=== PATIENT | female | born 1950 | race Caucasian/White ===

== ENCOUNTER 2025-03-04 11:15 | Emergency (ER) | payer OTHER ==
[~2025-03-04] VITALS: Ht 165.1 cm; Wt 56.9 kg
[2025-03-04 11:16] VITALS: BP 123/50; PULSE 58; RESP 16
--- NOTE | 2025-03-04 12:41 | EKG ---
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
--- NOTE | 2025-03-04 13:00 | HMCIMG ---
EXAM: CT Head Without IV contrast. CLINICAL HISTORY: syncope TECHNIQUE: Axial computed tomography images of the head/brain without intravenous contrast. COMPARISON: None provided. FINDINGS: BRAIN: No evidence of acute hemorrhage. No mass lesion. No CT evidence for acute territorial infarct. No midline shift or extra-axial collections. VENTRICLES: No hydrocephalus. ORBITS: The orbits are unremarkable. SINUSES AND MASTOIDS: The paranasal sinuses and mastoid air cells are clear. BONES: No fracture. SOFT TISSUES: Unremarkable. IMPRESSION: No acute intracranial abnormality. /[place]
[2025-03-04 13:04] LABS: IMMATURE GRANULOCYTE ABSOLUTE 0.04 K/uL (0-1); NUCLEATED RED BLOOD CELLS 0.0 % (0.0-0.19); PLATELET COUNT (AUTO) 230 K/uL (130-400); RED BLOOD CELL COUNT(AUTO) 4.33 MIL/uL (4.00-5.50); RED CELL DISTRIBUTION WIDTH 16.4 % (11.0-15.5); WHITE BLOOD COUNT (AUTO) 9.2 K/uL (4.8-10.8)
[2025-03-04 13:12] LABS: CREATININE 1.1 mg/dL (0.5-1.0); GLOMERULAR FILTR. RATE CALC 52.0 mL/min (>90); GLUCOSE,RANDOM 90.0 mg/dL (70-105); SODIUM SERUM 141.0 mmol/L (136-145); UREA NITROGEN, BLOOD 14.0 mg/dL (7-18)
[2025-03-04 13:37] LABS: APPEARANCE,URINE CLEAR (CLEAR); GLUCOSE, URINE (UA) NEGATIVE (NEGATIVE); LEUKOCYTE ESTERASE ,URINE 250 Leu/uL (NEGATIVE); NITRATE,URINE NEGATIVE (NEGATIVE); OCCULT BLOOD,URINE SMALL (NEGATIVE)
[2025-03-04 13:56] LABS: ADD UA MICROSCOPIC YES
--- NOTE | 2025-03-04 13:59 | HMCIMG ---
EXAM CR Pelvis, 1 View. CLINICAL HISTORY Injury. COMPARISON None provided. FINDINGS BONES No acute fracture or aggressive appearing osseous lesion is identified in the visualized pelvis or proximal femora. JOINTS There is mild bilateral hip osteoarthritis with minimal joint space narrowing and small marginal osteophytes. No hip dislocation is seen. SOFT TISSUES The soft tissues are unremarkable. IMPRESSION * Mild bilateral hip osteoarthritis. * No acute osseous abnormality. /[place]
--- NOTE | 2025-03-04 14:00 | HMCIMG ---
EXAM CR Right Hand, 3 View. CLINICAL HISTORY Injury. COMPARISON None provided. FINDINGS BONES There is mild diffuse osteopenia involving the distal radius, ulna, carpal bones, metacarpals, and phalanges. Presumed old fracture deformity at the mid diaphysis of the second metacarpal. No acute fracture or aggressive osseous lesion is identified. JOINTS Degenerative changes are present at the proximal and distal interphalangeal joints with marginal osteophytes and mild joint space narrowing. There are mild degenerative changes at the first carpometacarpal and intercarpal joints. No dislocation is seen. SOFT TISSUES The soft tissues appear within normal limits. No radiopaque foreign body is identified. IMPRESSION * Mild osteopenia of the right hand and wrist. * Degenerative changes involving the proximal and distal interphalangeal joints and mild osteoarthritis of the first carpometacarpal and intercarpal joints. * No acute fracture or dislocation. Presumed old, malunited fracture deformity at the mid diaphysis of the second metacarpal. Clinical correlation is advised. /Kenna
--- NOTE | 2025-03-04 14:02 | HMCIMG ---
EXAM: CR right elbow, 2 View. CLINICAL HISTORY: injury COMPARISON: None provided. FINDINGS: BONES: No acute fracture or aggressive appearing osseous lesion. JOINTS: The joint spaces appear within normal limits. No dislocation. No radiographic evidence of a joint effusion. SOFT TISSUES: The soft tissues are unremarkable. IMPRESSION: No acute osseous abnormality. /[place]achin
[2025-03-04 14:03] LABS: SQUAMOUS EPITHELIAL CELL,UR RARE /HPF (0-2)
[2025-03-04] MEDS: HYDROcodone/APAP 5/325 1 TAB TABLET PO ONE (14:48)
[2025-03-04] MEDS ORDERED: CEPH500B PO (14:56)
--- NOTE | 2025-03-04 14:57 | ERN ---
ED Note History of Present Illness Stated Complaint: FALL Chief Complaint: Mechanical Fall Time Seen by MD: 11:21 Dictation: 74-year-old female who presents to the emergency department after fall yesterday afternoon however did not seek care until today patient reports getting out of vehicle and falling onto her right hand and right arm area, patient also reported that she felt somewhat dizzy before the fall. No chest pain no shortness a breath Allergies: Coded Allergies: No Known Drug Allergies (Unverified Allergy, Unknown, 03/04/25) Past Medical History Past Medical History: Hypertension Surgical History: Tonsillectomy, Other Surgical History Other: BACK SX Review of System Dictation Constitutional: Negative for fever,chills, and weight loss Eyes: Negative for injury, pain,redness, and discharge ENT: Negative for injury,pain or swelling Cardiovascular: Negative for chest pain, palpitations, and edema Respiratory: Negative for shortness of breath, cough, and wheezing, Abdomen/GI: Negative for abdominal pain, nausea, vomiting, diarrhea, and constipation Back: Negative for injury and pain : Negative for injury, bleeding and discharge MS/Extremity: Per HPI Skin: Per HPI Neuro: Per HPI Initial Vital Sign VS Vital Signs Date Time Temp Pulse Resp B/P (MAP) Pulse Ox O2 Delivery O2 Flow Rate FiO2 03/04/25 11:16 58 16 123/50 98 0 Physical Exam Dictation General: awake, alert, NAD Head/Face: Normocephalic, atraumatic Eyes: PERRL, EOMI, vision at baseline ENT: oral cavity clear, TMs clear, no signs of infection Neck: Trachea midline, supple, no nuchal rigidity Cardiovascular: RRR, normal S1/S2, No MRGs, no JVD Respiratory: CTAB, no respiratory distress, No rales or wheezes Abdomen: Soft, non-tender, non-distended, normal bowel sounds, no guarding or rebound. Skin: Warm, dry, normal turgor, no rash, laceration to the right 3rd digit, over the PIP joint, flexor extensor tendon intact MS/Extremity: Pulses equal, no cyanosis, neurovascular intact, FROM, contusion to right elbow area, Neuro: COAx4, GCS 15, strength 5/5, CN 2-12 intact, normal cerebellar exam, normal gait, Psych: Normal behavior, mood, and affect normal Results (Laboratory/Radiology) Laboratory/Radiology Laboratory Tests Test 03/04/25 12:57 03/04/25 13:15 White Blood Count 9.2 K/uL (4.8-10.8) Red Blood Count 4.33 MIL/uL (4.00-5.50) Hemoglobin 11.8 g/dL (12.0-16.0) L Hematocrit 38.6 % (36-48) Mean Corpuscular Volume 89.1 fL (79-99) Mean Corpuscular Hemoglobin 27.3 pg (27.0-33.0) Mean Corpuscular Hemoglobin Concent 30.6 g/dL (32.0-36.0) L Red Cell Distribution Width 16.4 % (11.0-15.5) H Platelet Count 230 K/uL (130-400) Mean Platelet Volume 10.5 fL (7.5-10.5) Immature Granulocyte % (Auto) 0.4 % (0-1) Neutrophils (%) (Auto) 64.3 % (40.0-77.0) Lymphocytes (%) (Auto) 26.1 % (21.0-51.0) Monocytes (%) (Auto) 7.7 % (3.0-13.0) Eosinophils (%) (Auto) 1.2 % (0.0-8.0) Basophils (%) (Auto) 0.3 % (0.0-5.0) Neutrophils # (Auto) 5.9 K/uL (1.8-7.7) Lymphocytes # (Auto) 2.4 K/uL (1.0-4.8) Monocytes # (Auto) 0.7 K/uL (0.1-1.0) Eosinophils # (Auto) 0.11 K/uL (0.00-0.70) Basophils # (Auto) 0.03 K/uL (0.00-0.20) Absolute Immature Granulocyte (auto 0.04 K/uL (0-1) Nucleated Red Blood Cells 0.0 % (0.0-0.19) Red Blood Cell Morphology See comments Sodium Level 141 mmol/L (136-145) Potassium Level 3.8 mmol/L (3.5-5.1) Chloride Level 107 mmol/L (101-111) Carbon Dioxide Level 31 mmol/L (21-32) Blood Urea Nitrogen 14 mg/dL (7-18) Creatinine 1.1 mg/dL (0.5-1.0) H Glomerular Filtration Rate Calc 52 mL/min (>90) Random Glucose 90 mg/dL (70-105) Total Calcium 8.7 mg/dL (8.5-10.1) Troponin I High Sensitivity 12 ng/L (4-50) Urine Color YELLOW (YELLOW) Urine Appearance CLEAR (CLEAR) Urine pH 6.0 (5.0-8.0) Urine Specific [place] 1.019 (1.001-1.031) Urine Protein 50 mg/dL (NEGATIVE) H Urine Glucose (UA) NEGATIVE mg/dL (NEGATIVE) Urine Ketones NEGATIVE mg/dL (NEGATIVE) Urine Occult Blood SMALL (NEGATIVE) H Urine Nitrate NEGATIVE (NEGATIVE) Urine Bilirubin NEGATIVE mg/dL (NEGATIVE) Urine Urobilinogen 0.2 mg/dL (0.2-1.0) Urine Leukocyte Esterase 250 Yemi/uL (NEGATIVE) H Urine RBC 6-10 /HPF (0-1) H Urine WBC 11-25 /HPF (0-1) H Urine Squamous Epithelial Cells RARE /HPF (0-2) Urine Bacteria None /HPF (None Seen) Labs Reviewed?: Yes EKG: (+) NSR, (+) rhythm, (+) nonspecific ST T wave chg, (+) unchanged ED Course ED Course Orders Procedure Category Date Status Time Hand 3+Vws Rt RAD 03/04/25 Resulted 12:03 Elbow 2vws Rt RAD 03/04/25 Resulted 12:03 Pelvis 1-2vws RAD 03/04/25 Resulted 12:03 Ct Head/Brain W/O CT 03/04/25 Resulted Contrast 12:03 12 Lead Ekg Tracing- EKG 03/04/25 Complete Technical 12:03 Basic Metabolic Panel LAB 03/04/25 Complete 12:03 Cbc With Differential LAB 03/04/25 Complete 12:03 Troponin I High LAB 03/04/25 Complete Sensitivity 12:03 Urinalysis Profile LAB 03/04/25 Complete 12:03 Culture Urine OLGA 03/04/25 In Process 13:56 Ketorolac PHA 03/04/25 Complete Tromethamine 15mg/Ml 14:30 Hydrocodone/Apap PHA 03/04/25 Complete 5/325 ([place] 5/325mg) 14:30 Wound Care (Er) CPOE 12/21/25 Transmitted 14:28 Finger Splint TARIQ 12/21/25 In Process 14:28 Current Medications Medications (Trade) Dose Ordered Sig/Johanne Route PRN Reason Start Time Stop Time Status Last Admin Dose Admin Acetaminophen/ Hydrocodone Bitart (NORco 5/325MG) 1 tab ONCE ONCE PO 03/04/25 14:30 03/04/25 14:31 DC 03/04/25 14:48 Ketorolac Tromethamine (toRADol) 15 mg ONCE ONCE IM 03/04/25 14:30 03/04/25 14:31 DC 03/04/25 14:48 Vital Signs Date Time Temp Pulse Resp B/P (MAP) Pulse Ox O2 Delivery O2 Flow Rate FiO2 03/04/25 11:16 58 16 123/50 98 0 Medical Decision Making MDM MDM: Differential diagnosis: Rationale: Tests considered and ordered secondary to shared decision making include: Previous outside records reviewed: Old ER visits. Risk of complication and/or morbidity or mortality of patient management: None Medications-Per medication reconciliation Need for hospitalization: Patient does not meet criteria for hospitalization. Need for emergency major/minor surgery: No There are no social concerns with this patient. Prescription drug management Prescriptions will include symptomatic care Patient's prior external medical records from other ER visits were reviewed by me as indicated. Prior testing and results from previous visits were reviewed. Prior tests were taken into account with medical decision making and resource utilization, independent historian/historians were used to obtain complete medical history. I independently interpreted the test that were performed, results were reviewed by me and considered findings on radiology if ordered. Medical management and examination interpretation discussions were had by me with other qualified healthcare professionals as indicated for the patient's care. 74-year-old female with fall x-rays and CT of the head were negative negative cardiac workup, small laceration to the 3rd digit on the right hand was too old for laceration repair, laceration was irrigated washed out with Betadine placed on antibiotics tetanus is up-to-date, and loosely approximated with Steri-Strips and a finger splint. Procedure Wound Location: upper extremity Wound's Depth, Shape: superficial Wound Explored: clean Wound Debrided: extensive Wound Repaired With: Steri-strips Sterile Dressing Applied?: Yes DX & DISP Disposition: Discharge Departure Impression: Primary Impression: Fall Additional Impressions: Laceration of right hand, Contusion of right elbow Condition: Stable Scripts Cephalexin Monohydrate (Keflex) 500 Mg Cap 500 MG PO BID for 7 Days, #14 CAP Prov: BETH CARRENO MD 03/04/25 Referrals: SELF,REFERRAL (PCP) BETH CARRENO MD Mar 04, 2025 14:56
--- NOTE | 2025-03-04 15:45 | NUR ---
WOUND CARE COMPLETE. APPLIED FINGER SPLINT TO RT INDEX FINGER, PT TOLERATED WELL.
== END 2025-03-04 15:57 | disposition home or self-care (01) ==
LOC: EDH 11:15
DX: S61.212A Laceration without foreign body of right middle finger without damage to nail, initial encounter (principal); S50.01XA Contusion of right elbow, initial encounter; R42 Dizziness and giddiness; I10 Essential (primary) hypertension; Z90.89 Acquired absence of other organs; W18.39XA Other fall on same level, initial encounter; Y93.89 Activity, other specified; Y92.89 Other specified places as the place of occurrence of the external cause; Y99.8 Other external cause status
CPT/HCPCS: 99285; 70450; 84484; 80048; 85025; 87086; 81001; 36415; 73070; 73130; 72170; 29130; 96372; 93005; J1885